=== PATIENT | male | born 1980 | race Caucasian/White ===

== ENCOUNTER 2017-02-24 18:39 | Emergency (ER) | payer BC, OTHER ==
[2017-02-24 19:01] VITALS: BP 135/80
[2017-02-24] MEDS ORDERED: Ketorolac 60 MG/2 ML SDV IM ONE (19:17)
--- NOTE | 2017-02-24 19:22 | EDM.PDOC ---
ED HPI GENERAL MEDICAL PROBLEM - General Chief Complaint: Headache Stated Complaint: MIGRAINE Time Seen by Provider: 02/24/17 19:10 - History of Present Illness INITIAL COMMENTS - FREE TEXT/NARRATIVE: HISTORY AND PHYSICAL: History of present illness: The patient is a 36-year-old male with a history of headaches, "migraines", since he was a teenager and says that he gets them once a month and that the trigger for his headaches is bright lights or flashing lights. The patient states he usually goes into a dark room and rest for 10 hours and takes ibuprofen and the headache goes away. The patient also has a history of ear surgery on his left ear and chronic ear issues on the left side which is not new. He describes his headaches as frontal behind his eyes associated with some nausea blurred vision but no weakness numbness but there is some dizziness. The patient is here today stating that his headache has improved but his was concerned because he had a headache last Thursday, this Thursday as well as today. She thought that 3 headaches in one week were too much and she wanted evaluation. She says that he seemed to be more dizzy with his headache on Thursday. He's currently not dizzy he is not nauseated he has no chest pain fever chills abdominal pain vomiting or diarrhea and his headache is in the usual location but it is better than it was earlier today. He has no neck pain no back pain and no focal neurologic changes. He has no recent trauma to his head or neck. Everything about the headaches and has been experiencing is typical of his headaches there is nothing new or different it's just that they're coming more frequently. Patient has never seen a neurologist her headache specialist for this Review of systems: As per history of present illness and below otherwise all systems reviewed and negative. Past medical history: As per history of present illness and as reviewed below otherwise noncontributory. Surgical history: As per history of present illness and as reviewed below otherwise noncontributory. Social history: No reported history of drug or alcohol abuse. Family history: As per history of present illness and as reviewed below otherwise noncontributory. Physical exam: General: Well-developed well-nourished male who is nontoxic and speaking clearly and easily. Vital signs been reviewed by me. HEENT: Atraumatic, normocephalic, pupils reactive, negative for conjunctival pallor or scleral icterus, mucous membranes moist, throat clear, neck supple, nontender, trachea midline. The right TM has a good light reflex and is normal the left TM has chronic changes dullness and abnormalities but there is nothing new as far as redness or bulging. He has no nystagmus and EOMs are intact. There is no cervical adenopathy or nuchal rigidity and no discrete sinus tenderness. Lungs: Clear to auscultation, breath sounds equal bilaterally, chest nontender. Heart: S1S2, regular, negative for clicks, rubs, or JVD. Abdomen: Soft, nondistended, nontender. NABS Pelvis: Stable nontender. Genitourinary: Deferred. Rectal: Deferred. Extremities: Atraumatic, negative for cords or calf pain. Neurovascular unremarkable. Neuro: Awake, alert, oriented. Cranial nerves II through XII unremarkable. Cerebellum unremarkable. Motor and sensory unremarkable throughout. Exam nonfocal. Diagnostics: CT scan of the head Therapeutics: Toradol I discussed with the patient at length that he would likely need to see our neurologist Dr. Reis for further evaluation and care of these headaches as he does not have a formal headache diagnosis and we will be limited in our evaluation here. Currently he would like minimal treatment for the pain is all given him some Toradol and will do the CAT scan of the head. After the CT scan was ordered and the patient received the Toradol he and the decided they would like to wait and get a referral to the neurologist and not do the CAT scan today. He is understanding of my concerns and he says that he is accepting of this refusal and the implications of not do a CAT scan. He will be given information about connecting with our clinic and reasons to return to the ED. Impression: Headache syndrome acute on chronic Definitive disposition and diagnosis as appropriate pending reevaluation and review of above. headache Pain Score (Numeric/FACES): 5 - Related Data Allergies Allergy/AdvReac Type Severity Reaction Status Date / Time No Known Allergies Allergy Verified 02/24/17 18:57 Home Meds: Home Meds Fluticasone Propionate [Flonase] 0 gm NASBOTH DAILY 02/24/17 [History] Past Medical History Other HEENT History: hx of surgery on left ear Cardiovascular History: Reports: None Respiratory History: Reports: None Gastrointestinal History: Reports: None Genitourinary History: Reports: None Musculoskeletal History: Reports: None Neurological History: Reports: None Psychiatric History: Reports: None Endocrine/Metabolic History: Reports: None Hematologic History: Reports: None Dermatologic History: Reports: None - Infectious Disease History Infectious Disease History: Reports: Chicken pox - Past Surgical History Male Surgical History: Reports: None Social & Family History - Family History Family Medical History: Noncontributory - Tobacco Use Smoking Status *Q: Current Every Day Smoker Years of Tobacco use: 22 Packs/Tins Daily: 0.5 - Recreational Drug Use Recreational Drug Use: No ED ROS GENERAL - Review of Systems Review Of Systems: ROS reveals no pertinent complaints other than HPI. ED EXAM, GENERAL - Physical Exam Exam: See Below (See dictation) Course - Vital Signs Last Recorded V/S: Last Vital Signs Temp 37.0 C 02/24/17 18:57 Pulse 97 02/24/17 18:57 Resp 18 02/24/17 18:57 BP 135/80 02/24/17 18:57 Pulse Ox 95 02/24/17 18:57 - Orders/Labs/Meds Orders: Active Orders 24 hr Category Date Time Status Head wo Cont [CT] Stat Exams 02/24/17 19:17 Stop Req Meds: Medications Discontinued Medications Generic Name Dose Route Start Last Admin Trade Name Freq PRN Reason Stop Dose Admin Ketorolac Tromethamine 60 mg 02/24/17 19:17 02/24/17 19:32 Toradol IM 02/24/17 19:18 60 mg ONETIME ONE Administration Departure - Departure Time of Disposition: 19:41 Disposition: Home, Self-Care 01 Condition: good Clinical Impression: Headache syndrome Forms: ED Department Discharge Additional Instructions: The following information is given to patients seen in the emergency department who are being discharged to home. This information is to outline your options for follow-up care. We provide all patients seen in our emergency department with a follow-up referral. The need for follow-up, as well as the timing and circumstances, are variable depending upon the specifics of your emergency department visit. If you don't have a primary care physician on staff, we will provide you with a referral. We always advise you to contact your personal physician following an emergency department visit to inform them of the circumstance of the visit and for follow-up with them and/or the need for any referrals to a consulting specialist. The emergency department will also refer you to a specialist when appropriate. This referral assures that you have the opportunity for followup care with a specialist. All of these measure are taken in an effort to provide you with optimal care, which includes your followup. Under all circumstances we always encourage you to contact your private physician who remains a resource for coordinating your care. When calling for followup care, please make the office aware that this follow-up is from your recent emergency room visit. If for any reason you are refused follow-up, please contact the [facility] emergency department at and ask to speak to the emergency department charge nurse. [facility] Primary care- Internal Medicine and Family [facility] [address] [place] [id number] [facility] Specialty care-Neurology Professional [address], [address] [place] [address] Please return to ER as needed and as discussed. Please call and followup in our clinics using resources given to above. - My Orders Last 24 Hours: My Active Orders 02/24/17 19:17 Head wo Cont [CT] Stat - Assessment/Plan Last 24 Hours: My Active Orders 02/24/17 19:17 Head wo Cont [CT] Stat
== END 2017-02-24 19:53 | disposition home or self-care (01) ==
LOC: MW.ED 18:39
DX: G44.89 Other headache syndrome (principal); F17.210 Nicotine dependence, cigarettes, uncomplicated
CPT/HCPCS: 96372; 99283; J1885

== ENCOUNTER 2023-08-28 19:06 | Emergency (ER) | payer OTHER ==
[2023-08-28] MEDS ORDERED: Sodium Chloride 0.9% 2.5 ML Syringe FLUSH PRN (20:00)
[2023-08-28] MEDS ORDERED: Sodium Chloride 0.9% 10 ML Syringe FLUSH PRN (20:00)
[2023-08-28] MEDS ORDERED: Sodium Chloride 0.9% 500 ML IV SCH (20:15)
[2023-08-28 20:33] LABS: BASOPHILS ABSOLUTE AUTO 0.06 K/uL (0.00-0.20); EOSINOPHILS ABSOLUTE AUTO 0.11 K/uL (0.00-0.45); EOSINOPHILS PERCENT AUTO 1.9 % (0.0-6.0); HEMATOCRIT 42.4 % (42.0-52.0); HEMOGLOBIN 14.6 g/dL (14.0-18.0); IMMATURE GRAN ABSOLUTE AUTO 0.02 K/uL (0.00-0.05); IMMATURE GRAN PERCENT AUTO 0.3 % (0.0-0.4); LYMPHOCYTES ABSOLUTE AUTO 2.08 K/uL (1.00-4.80); LYMPHOCYTES PERCENT AUTO 35.3 % (24.0-44.0); MEAN CORPUSCULAR HEMOGLOBIN 28.2 pg (28.0-32.0); MEAN CORPUSCULAR HGB CONC 34.4 g/dL (32.0-36.0); MEAN PLATELET VOLUME 9.2 fL (9.4-12.4); MONOCYTES ABSOLUTE AUTO 0.37 K/uL (0.00-0.80); MONOCYTES PERCENT AUTO 6.3 % (0.0-8.0); NEUTROPHILS ABSOLUTE AUTO 3.26 K/uL (1.80-7.70); NEUTROPHILS PERCENT AUTO 55.2 % (41.0-71.0); PLATELET COUNT,PLT 305 K/uL (150-400); RED BLOOD CELL COUNT 5.17 M/uL (4.52-5.90)
[2023-08-28 20:47] LABS: INR 0.96 (0.86-1.11)
[2023-08-28 21:05] LABS: A/G RATIO 1.3 (0.9-1.6); ALBUMIN 4.6 g/dL (3.4-5.0); BILIRUBIN TOTAL 0.2 mg/dL (0.2-1.0); CALCIUM 9.2 mg/dL (8.5-10.1); CARBON DIOXIDE,CO2 22.4 mmol/L (21.0-32.0); CREATININE 1.2 mg/dL (0.8-1.3); EST CRCL DRUG DOSING (CG) 70.89 mL/min; POTASSIUM,K 3.7 mmol/L (3.5-5.1); PROTEIN TOTAL,TP 8.2 g/dL (6.4-8.2); TSH ULTRASENSITIVE 1.93 uIU/mL (0.36-3.74)
[2023-08-28 21:06] LABS: AMPHETAMINES SCREEN, URINE NEGATIVE (CUTOFF=500); BARBITURATE SCREEN,URINE NEGATIVE (CUTOFF=200); BENZODIAZEPINES SCREEN,URINE NEGATIVE (CUTOFF=150); BUPRENORPHINE SCREEN,URINE NEGATIVE (CUTOFF=10); METHADONE SCREEN, URINE NEGATIVE (CUTOFF=200); METHAMPHETAMINES SCREEN, URINE NEGATIVE (CUTOFF=500); OXYCODONE SCREEN,URINE NEGATIVE (CUT0FF=100); PCP SCREEN,URINE NEGATIVE (CUTOFF=25); PROPOXYPHENE SCREEN,URINE NEGATIVE (CUTOFF=300); THC SCREEN,URINE 20 NG/ML NEGATIVE (CUTOFF=50)
[2023-08-28 21:11] LABS: D-DIMER QUANTITATIVE < 0.19 mg/L FEU (0.00-0.50)
[2023-08-28 21:37] VITALS: BP 139/91; PULSE 82
== END 2023-08-28 21:36 | disposition home or self-care (01) ==
LOC: MW.ED 19:06
DX: R07.89 Other chest pain (principal); H66.92 Otitis media, unspecified, left ear; Z79.899 Other long term (current) drug therapy
CPT/HCPCS: 36415; 71045; 80053; 80305; 84443; 84484; 85025; 85379; 85610; 93005; 99285; J3490; J7040; 93010; 99283

== ENCOUNTER 2023-12-24 10:07 | Day surgery (SDC) | payer OTHER ==
[~2023-12-24 10:07] MED LIST: Sodium Chloride 0.9% 10 ML Syringe FLUSH PRN; Sodium Chloride 0.9% 2.5 ML Syringe FLUSH PRN; Sodium Chloride 0.9% 20 ML SDV IV PRN
[2023-12-24] MEDS ORDERED: propofoL 50 ML ONE (10:12)
[2023-12-24] MEDS: Lactated Ringers 1,000 ML IV SCH (10:28)
[2023-12-24 15:35] VITALS: BP 108/54; PULSE 67
== END 2023-12-24 11:55 | disposition home or self-care (01) ==
LOC: MW.SDS 10:07
PROVIDERS: ATTEND Surgery
DX: I51.89 Other ill-defined heart diseases (principal); K21.9 Gastro-esophageal reflux disease without esophagitis; F41.9 Anxiety disorder, unspecified; M19.90 Unspecified osteoarthritis, unspecified site; I10 Essential (primary) hypertension; A69.23 Arthritis due to Lyme disease; W57.XXXA Bitten or stung by nonvenomous insect and other nonvenomous arthropods, initial encounter; Z79.899 Other long term (current) drug therapy
CPT/HCPCS: 43239; J2704; J7120; 00731